=== PATIENT | female | born 1995 | race African-American/Black ===

== ENCOUNTER → 2017-08-24 19:21 | Emergency (ER) | payer SELFPAY ==
[~2017-08-24 19:21] MED LIST: Ondansetron ODT TAB* 4 MG PO ONE
[2017-08-24 19:33] VITALS: BP 113/83
--- NOTE | 2017-08-24 21:44 | ED ---
Roque Tang Elizabeth, scribed for Barrie Spicer MD on 08/24/17 at 2044 . GI/ HPI - HPI Summary HPI Summary: This patient is a 21 year old F presenting to [facility] with a chief complaint of nausea and vomiting since 17:30-18:00 today. Patient reports her vomiting episodes were approximately 6 minutes apart and she stopped vomiting 20 minutes prior to her arrival at [facility]. Per triage note, the patient says she thinks she has food poisoning. The patient rates the pain 0 /10 in severity. Symptoms aggravated by nothing. Symptoms alleviated by nothing. Patient denies any pain or any other medical problems. - History of Current Complaint Chief Complaint: EDNauseaVomitDiarrh Time Seen by Provider: 08/24/17 20:00 Stated Complaint: VOMITING Hx Obtained From: Patient Onset/Duration: Started Hours Ago - began 17:30 Timing: Intermittent, Lasting Minutes Severity: Mild Current Severity: Mild Pain Intensity: 0 Location of Pain: None - patient denies pain Associated Signs and Symptoms: Positive: Nausea, Vomiting Aggravating Factor(s): Nothing Alleviating Factor(s): Nothing - Allergy/Home Medications Allergies/Adverse Reactions: Allergies Allergy/AdvReac Type Severity Reaction Status Date / Time No Known Allergies Allergy Verified 08/24/17 19:33 Home Medications: Home Medications NK [No Home Medications Reported] 08/24/17 [History Confirmed 08/24/17] PMH/Surg Hx/FS Hx/Imm Hx Endocrine/Hematology History: Denies: Hx Diabetes Cardiovascular History: Denies: Hx Hypertension Respiratory History: Denies: Hx Chronic Obstructive Pulmonary Disease (COPD) - Immunization History Date of Tetanus Vaccine: utd Date of Influenza Vaccine: fall 2016 Infectious Disease History: No Infectious Disease History: Denies: Traveled Outside the [place] in Last 30 Days - Family History Known Family History: Positive: Unknown - Social History Alcohol Use: None Substance Use Type: Reports: None Smoking Status (MU): Never Smoked Tobacco Review of Systems Negative: Chest Pain Negative: Shortness Of Breath Positive: Vomiting, Nausea. Negative: Abdominal Pain Negative: Headache All Other Systems Reviewed And Are Negative: Yes Physical Exam - Summary Physical Exam Summary: Appearance: The patient is well-nourished in no acute distress and in no acute pain. Skin: The skin is warm and dry and skin color reflects adequate perfusion. HEENT: The head is normocephalic and atraumatic. The pupils are equal and reactive. The conjunctivae are clear and without drainage. Nares are patent and without drainage. Mouth reveals moist mucous membranes and the throat is without erythema and exudate. The external ears are intact. The ear canals are patent and without drainage. The tympanic membranes are intact. Neck: the neck is supple with full range of motion and non-tender. There are no carotid bruits. There is no neck vein distension. Respiratory: Chest is non-tender. Lungs are clear to auscultation and breath sounds are symmetrical and equal. Cardiovascular: Heart is regular rate and rhythm. There is no murmur or rub auscultated. There is no peripheral edema and pulses are symmetrical and equal. Abdomen: The abdomen is soft and non-tender. There are normal bowel sounds heard in all four quadrants and there is no organomegaly palpated. Musculoskeletal: There is no back tenderness noted. Extremities are non-tender with full range of motion. There is good capillary refill. There is no peripheral edema or calf tenderness elicited. Neurological: Patient is alert and oriented to person, place and time. The patient has symmetrical motor strength in all four extremities. Cranial nerves are grossly intact. Deep tendon reflexes are symmetrical and equal in all four extremities. Psychiatric: The patient has an appropriate affect and does not exhibit any anxiety or depression. Triage Information Reviewed: Yes Vital Signs On Initial Exam: Initial Vitals Temp Pulse Resp BP Pulse Ox 97.2 F 86 16 113/83 99 08/24/17 19:30 08/24/17 19:30 08/24/17 19:30 08/24/17 19:30 08/24/17 19:30 Vital Signs Reviewed: Yes Diagnostics - Vital Signs Vital Signs Temp Pulse Resp BP Pulse Ox 08/24/17 19:30 97.2 F 86 16 113/83 99 - Laboratory Lab Statement: Any lab studies that have been ordered have been reviewed, and results considered in the medical decision making process. GIGU Course/Dx - Course Course Of Treatment: Ms. Bee was feeling a bit better on arrival and I gave her a zofran ODT and she felt fine and was able to keep water down. I sent some zofran home with her with the expectaton that shoud pass quickly and she should F/U if not. - Diagnoses Provider Diagnoses: Nausea, Vomiting Discharge - Sign-Out/Discharge Documenting (check all that apply): Discharge/Admit/Transfer - Discharge Plan Condition: Stable Disposition: HOME Patient Education Materials: Acute Nausea and Vomiting (ED) Referrals: [facility] [Outside] - 2 Days Additional Instructions: Follow up with primary care physician if symptoms persist. Return to the emergency department with any new or worsening symptoms. - Billing Disposition and Condition Condition: STABLE Disposition: HOME The documentation as recorded by the Roque suarez Elizabeth accurately reflects the service I personally performed and the decisions made by me, Barrie Spicer MD.
== END | disposition home or self-care (01) ==
LOC: ED 19:21
DX: R11.2 Nausea with vomiting, unspecified (principal)
CPT/HCPCS: 99282; A9270-GY